=== PATIENT | male | born 1990 | race Caucasian/White ===

== ENCOUNTER 2017-05-15 09:45 | Emergency (ER) | payer OTHER | END 2017-05-15 11:55 | disposition home or self-care (01) | LOC: ER 09:45 | DX: K63.89 Other specified diseases of intestine (principal); F31.9 Bipolar disorder, unspecified; Z79.899 Other long term (current) drug therapy; Z88.0 Allergy status to penicillin; Z88.1 Allergy status to other antibiotic agents | CPT/HCPCS: 36415; 96360; Q9967 ==